=== PATIENT | male | born 1980 | race Two or more races ===

== ENCOUNTER 2019-06-19 10:59 | Emergency (ER) | payer SELFPAY ==
[~2019-06-19] VITALS: Ht 167.6 cm; Wt 72.6 kg
--- NOTE | 2019-06-19 11:07 | NUR ---
MUNDO RA 78 "was found in the alley bystanders were doing CPR he had needle in his hand. BS-137 Given 2mg Narcan in Left hand Angio cath 20G" pt is aaox1, not in respiratory distress ,hooked to surveillance system monitor, kept rested and comfortable, will continue to monitor.
--- NOTE | 2019-06-19 11:23 | NUR ---
SEEN AND EXAMINED BY .
[2019-06-19] MEDS ORDERED: METOCLOPRAMIDE HCL 10 MG TABLET PO ONE (11:30)
[2019-06-19] MEDS ORDERED: METOCLOPRAMIDE HCL 10 MG TABLET ONE (11:32)
--- NOTE | 2019-06-19 14:18 | NUR ---
PTN ASLEEP ON BED EASILY AROUSABLE, AAOX1, NOT IN RESPIRATORY DISTRESS, V/S STABLE, KEPT RESTED AND COMFORTABLE, WILL CONTINUE TO MONITOR.
--- NOTE | 2019-06-19 18:16 | NUR ---
ONCE AWAKE GOOD FOR DISCHARGE PER MD.
--- NOTE | 2019-06-19 22:10 | NUR ---
PT AWAKE, AAOX4. NO ACUTE DISTRESS NOTED AT THIS TIME. AMBULATORY WITH STEADY GAIT. PER DR. ROES, PT MEDICALLY CLEARED FOR DISCHARGE. IV removed. Catheter intact and site benign. Pressure and 4x4 applied to site. No bleeding noted.Patient given written and verbal discharge instructions. Patient verbalizes understanding of instructions. Patient is ambulatory with steady gait. Refuses offer of fdc placement. Patient refused list of available shelters in surrounding area.
[2019-06-19 22:30] VITALS: BP 132/82
== END 2019-06-19 22:31 | disposition home or self-care (01) ==
LOC: ER 11:02 → EDBD 11:02 → ER 22:31
DX: T40.1X1A Poisoning by heroin, accidental (unintentional), initial encounter (principal); Z59.0 Homelessness; Y92.89 Other specified places as the place of occurrence of the external cause
CPT/HCPCS: 99285; J7030; J8597